=== PATIENT | female | born 1950 | race Caucasian/White ===

== ENCOUNTER 2017-11-05 11:14 | Inpatient (IN) ==
[2017-11-05] MEDS ORDERED: LORazepam 1 MG TABLET PO PRN (13:35)
[2017-11-05] MEDS ORDERED: ZALEPLON 5 MG CAPSULE PO PRN (13:35)
[2017-11-05] MEDS ORDERED: ENOXAPARIN 40 MG/0.4 ML SYRINGE SUBCUT SCH (14:00)
[2017-11-05 14:02] LABS: Basophils # 0.1 10*3/uL (0.0-0.2); Basophils % 1.4 % (0.0-0.8); Eosinophils # 0.2 10*3/uL (0.0-0.87); Hematocrit 43.2 VOL% (35.7-47.0); Hemoglobin 14.8 GM/DL (12.0-16.0); Immature Granulocytes % 0.5 %; Immature Granulocytes Absolute 0.02 #; Lymphocytes # 1.5 10*3/uL (1.4-4.0); Lymphocytes % 36.4 % (21.3-54.2); Mean Corpuscular HGB Conc 34.3 GM/DL (32-36); Mean Corpuscular Hemoglobin 31 PG (27-34); Mean Corpuscular Volume 90.8 FL (87-102); Mean Platelet Volume 10.8 FL (9.6-12.0); Monocytes # 0.2 10*3/uL (0.11-0.8); Neutrophils # 2.2 10*3/uL (1.4-7.4); Neutrophils % 51.7 % (38.7-73.9); Platelet Count 95 T/CUMM (130-400); Red Blood Count 4.76 MC/CUMM (3.8-5.5); Red Cell Distribution Width 13.1 % (9.3-17.3); White Blood Count 4.2 T/CUMM (4-12)
[2017-11-05] MEDS: SODIUM CHLORIDE 0.9% 1,000 ML IV SCH (14:09)
[2017-11-05 14:24] LABS: Albumin 4.1 G/DL (3.4-5.0); Calcium 8.5 MG/DL (8.5-10.1); Osmolality,Calculated 279.4 MOS/KG (273-304); Potassium 3.6 MMOL/L (3.5-5.1); Total Protein 7.5 G/DL (6.4-8.3)
[2017-11-05] MEDS ORDERED: MAGNESIUM SULF RIDER 2 GM in PREMIX 1 EACH IV PRN (15:30)
[2017-11-05] MEDS: KETOROLAC 15 MG/1 ML VIAL IV PRN ×2 (16:20→23:28)
[2017-11-05] MEDS: MEROPENEM 1,000 MG in SYRINGE 1 EACH IV SCH ×2 (16:21→23:27)
[2017-11-05] MEDS: ONDANSETRON 4 MG/2 ML VIAL IV PRN ×2 (16:21→20:29)
[2017-11-05] MEDS ORDERED: MAGNESIUM SULF RIDER 4 GM in PREMIX 1 EACH IV PRN (17:00)
[2017-11-05] MEDS: FLUoxetine 20 MG CAPSULE PO SCH (20:29)
[2017-11-06] MEDS ORDERED: PROMETHAZINE 25 MG/1 ML VIAL IM PRN (00:01)
[2017-11-06 00:05] LABS: Apearance,Urine CLEAR (Clear); Bilirubin,Urine Negative (Negative); Blood, Urine Negative (Negative); Glucose,Urine (UA) Negative (Negative); Ketones,Urine Negative (Negative); Nitrite,Urine Negative (Negative); Protein,Urine Negative; RBC,Urine <1 /HPF (0-4); Squamous Epithelial Cell,Urine Occasional /HPF (0-10); Urine Color Yellow (Yellow); Urine Specific Gravity 1.039 (1.001-1.035); Urine Urobilinogen < 2.0 EU/DL (0.2-1.0); WBC,Urine 3 /HPF (0-6)
[2017-11-06] MEDS: SODIUM CHLORIDE 0.9% 1,000 ML IV SCH ×2 (02:30→15:56)
[2017-11-06 06:23] LABS: Basophils % 0.7 % (0.0-0.8); Eosinophils # 0.2 10*3/uL (0.0-0.87); Eosinophils % 5.3 % (0.00-10.9); Hematocrit 38.9 VOL% (35.7-47.0); Hemoglobin 13.9 GM/DL (12.0-16.0); Immature Granulocytes % 0.2 %; Immature Granulocytes Absolute 0.01 #; Lymphocytes # 2.4 10*3/uL (1.4-4.0); Mean Corpuscular HGB Conc 35.7 GM/DL (32-36); Mean Corpuscular Hemoglobin 32 PG (27-34); Mean Corpuscular Volume 88.2 FL (87-102); Monocytes # 0.3 10*3/uL (0.11-0.8); Monocytes % 6.7 % (1.7-12.7); Neutrophils # 1.4 10*3/uL (1.4-7.4); Neutrophils % 32.1 % (38.7-73.9); Platelet Count 79 T/CUMM (130-400); Red Blood Count 4.41 MC/CUMM (3.8-5.5); White Blood Count 4.3 T/CUMM (4-12)
[2017-11-06 06:50] LABS: Eosinophils 3 % (0-10); Lymphocytes 55 % (20-55); Platelet Estimate Decreased; Polychromasia Slight; Segmented Neutrophils 40 % (50-85); Target Cells Slight; Total Cells Counted 100
[2017-11-06 06:57] LABS: Albumin 3.4 G/DL (3.4-5.0); Bilirubin,Total 1.2 MG/DL (0.2-1.0); Calcium 7.9 MG/DL (8.5-10.1); Osmolality,Calculated 280.1 MOS/KG (273-304); Potassium 3.3 MMOL/L (3.5-5.1); Total Protein 6.2 G/DL (6.4-8.3)
[2017-11-06] MEDS: MEROPENEM 1,000 MG in SYRINGE 1 EACH IV SCH ×3 (08:58→23:32)
[2017-11-06] MEDS: PANTOPRAZOLE 40 MG TABLET PO SCH (09:08)
[2017-11-06] MEDS: TOLTERODINE LA 4 MG CAPSULE PO SCH (09:09)
[2017-11-06] MEDS: FLUoxetine 20 MG CAPSULE PO SCH ×2 (09:09→20:52)
[2017-11-06 13:09] LABS: Hepatitis A Ab IgM Result Negative (Negative); Hepatitis B Core IgM Quant 0.17 Index; Hepatitis B Core IgM Result Negative (Negative); Hepatitis B Surface Ag Quant < 0.10 Index; Hepatitis B Surface Ag Result Negative (Negative); Hepatitis C Virus Ab Quant 0.07 Index; Hepatitis C Virus Ab Result Negative (Negative)
[2017-11-06] MEDS ORDERED: POTASSIUM CHLORIDE 20 MEQ TABLET PO ONE (13:41)
[2017-11-06] MEDS: KETOROLAC 15 MG/1 ML VIAL IV PRN (20:48)
[2017-11-06] MEDS ORDERED: AMITRIPTYLINE 25 MG TABLET PO SCH (21:00)
[2017-11-07 06:59] LABS: Basophils % 0.7 % (0.0-0.8); Eosinophils # 0.2 10*3/uL (0.0-0.87); Eosinophils % 5.6 % (0.00-10.9); Hematocrit 41.5 VOL% (35.7-47.0); Hemoglobin 14.3 GM/DL (12.0-16.0); Immature Granulocytes % 0.2 %; Immature Granulocytes Absolute 0.01 #; Lymphocytes # 2.3 10*3/uL (1.4-4.0); Lymphocytes % 55.1 % (21.3-54.2); Mean Corpuscular HGB Conc 34.5 GM/DL (32-36); Mean Corpuscular Hemoglobin 31 PG (27-34); Mean Corpuscular Volume 89.8 FL (87-102); Mean Platelet Volume 10.9 FL (9.6-12.0); Monocytes # 0.2 10*3/uL (0.11-0.8); Monocytes % 5.8 % (1.7-12.7); Neutrophils # 1.4 10*3/uL (1.4-7.4); Neutrophils % 32.6 % (38.7-73.9); Platelet Count 82 T/CUMM (130-400); Red Blood Count 4.62 MC/CUMM (3.8-5.5); White Blood Count 4.1 T/CUMM (4-12)
[2017-11-07 07:28] LABS: Albumin 3.6 G/DL (3.4-5.0); Calcium 8.4 MG/DL (8.5-10.1); Osmolality,Calculated 278.3 MOS/KG (273-304); Potassium 3.8 MMOL/L (3.5-5.1); Total Protein 6.7 G/DL (6.4-8.3)
[2017-11-07 07:40] LABS: Eosinophils 8 % (0-10); Hypochromasia 1+; Lymphocytes 59 % (20-55); Segmented Neutrophils 32 % (50-85); Total Cells Counted 100
[2017-11-07 07:41] LABS: Atypical Lymphocytes Few; Microcytosis 1+; Platelet Estimate Decreased
[2017-11-07 07:50] VITALS: BP 129/72
[2017-11-07] MEDS: MEROPENEM 1,000 MG in SYRINGE 1 EACH IV SCH (08:55)
[2017-11-07] MEDS: TOLTERODINE LA 4 MG CAPSULE PO SCH (08:59)
[2017-11-07] MEDS: FLUoxetine 20 MG CAPSULE PO SCH (08:59)
[2017-11-07] MEDS: PANTOPRAZOLE 40 MG TABLET PO SCH (09:00)
[2017-11-07] MEDS: KETOROLAC 15 MG/1 ML VIAL IV PRN (10:22)
[2017-11-07] MEDS: SODIUM CHLORIDE 0.9% 1,000 ML IV SCH (10:40)
== END 2017-11-07 11:10 | disposition home or self-care (01) | DRG 392 ==
LOC: N.2E 12:45
PROVIDERS: ADMIT Internal Medicine; ATTEND Internal Medicine

== ENCOUNTER 2022-07-22 12:53 | Observation (INO) ==
[2022-07-22] MEDS ORDERED: ONDANSETRON 4 MG/2 ML VIAL IV ONE (14:41)
[2022-07-22] MEDS ORDERED: HYDROmorphone 1 MG/1 ML SYRINGE IV STA ×2 (14:41→19:47)
[2022-07-22] MEDS ORDERED: LABETALOL 20 MG/4 ML SYRINGE IV STA ×2 (14:41→15:59)
[2022-07-22] MEDS ORDERED: SODIUM CHLORIDE 0.9% 1,000 ML IV STA (14:41)
[2022-07-22] MEDS ORDERED: PANTOPRAZOLE 40 MG VIAL IV STA (14:43)
[2022-07-22 15:29] LABS: Basophils % 0.2 % (0.0-0.8); Hematocrit 37.5 VOL% (35.7-47.0); Hemoglobin 11.9 GM/DL (12.0-16.0); Immature Granulocytes % 0.8 %; Immature Granulocytes Absolute 0.04 #; Lymphocytes # 0.5 10*3/uL (1.4-4.0); Lymphocytes % 10.1 % (21.3-54.2); Mean Corpuscular HGB Conc 31.7 GM/DL (32-36); Mean Corpuscular Volume 80.3 FL (87-102); Monocytes # 0.3 10*3/uL (0.11-0.8); Monocytes % 5.5 % (1.7-12.7); Neutrophils % 83.4 % (38.7-73.9); Platelet Count 138 T/CUMM (130-400); Red Blood Count 4.67 MC/CUMM (3.8-5.5); Red Cell Distribution Width 24.6 % (9.3-17.3); White Blood Count 5.2 T/CUMM (4-12)
[2022-07-22 15:34] LABS: INR 1.2; PT Patient Result 13.4 SECS (10.1-12.1)
[2022-07-22 17:38] LABS: Urine Appearance Clear (Clear); Urine Color Yellow (Yellow)
[2022-07-22 17:39] LABS: Bilirubin,Urine Negative (Negative); Blood, Urine Trace mg/dL (Negative); Glucose,Urine (UA) Negative (Negative); Ketones,Urine Negative (Negative); Nitrite,Urine Negative (Negative); Protein,Urine Negative (Negative); Urine Specific Gravity 1.025 (1.001-1.035); Urine Urobilinogen 0.2 eU/dL (<2.0)
[2022-07-22 17:42] LABS: Bacteria,Urine Moderate /HPF (Few); Mucus,Urine Occasional /LPF (Occasional); RBC,Urine 1 /HPF (0-4); Squamous Epithelial Cell,Urine Occasional /HPF (0-10)
[2022-07-22 17:52] LABS: Albumin 3.6 G/DL (3.4-5.0); Calcium 8.2 MG/DL (8.5-10.1); Osmolality,Calculated 281.1 MOS/KG (273-304); Potassium 3.4 MMOL/L (3.5-5.1); Total Protein 7.4 G/DL (6.4-8.2)
[2022-07-22] MEDS ORDERED: CIPROFLOXACIN INJ 400 MG/200 ML PREMIX IV STA (19:28)
[2022-07-22] MEDS ORDERED: metroNIDAZOLE INJ 500 MG/100 ML PREMIX IV STA (19:28)
[2022-07-22] MEDS ORDERED: ACETAMINOPHEN 325 MG TABLET PO PRN (20:15)
[2022-07-22] MEDS ORDERED: hydrALAZINE 20 MG/1 ML VIAL IV PRN (20:15)
[2022-07-22] MEDS ORDERED: ALBUTEROL/IPRATROPIUM 3 ML NEB RESP TX PRN (20:15)
[2022-07-22] MEDS ORDERED: PROMETHAZINE INJ 25 MG in SODIUM CHLORIDE 0.9% 50 ML IV PRN (20:51)
[2022-07-22] MEDS: PANTOPRAZOLE 40 MG VIAL IV SCH (22:12)
[2022-07-22] MEDS: ONDANSETRON 4 MG/2 ML VIAL IV PRN (22:15)
[2022-07-22] MEDS: LACTATED RINGERS 1,000 ML IV SCH (22:19)
[2022-07-23] MEDS: traZODone 50 MG TABLET PO SCH ×2 (00:18→21:09)
[2022-07-23] MEDS ORDERED: DIAZEPAM 5 MG TABLET PO PRN (00:23)
[2022-07-23] MEDS ORDERED: EPINEPHrine 1 MG/ML VIAL IM PRN (00:25)
[2022-07-23] MEDS ORDERED: SODIUM CHLORIDE 0.9% 1,000 ML IV STA (01:24)
[2022-07-23] MEDS: metroNIDAZOLE INJ 500 MG/100 ML PREMIX IV SCH ×2 (03:30→16:30)
[2022-07-23] MEDS: HYDROmorphone 1 MG/1 ML SYRINGE IV PRN ×3 (03:45→17:54)
[2022-07-23 04:40] LABS: Basophils % 0.2 % (0.0-0.8); Hematocrit 35.1 VOL% (35.7-47.0); Hemoglobin 11.1 GM/DL (12.0-16.0); Immature Granulocytes % 0.2 %; Immature Granulocytes Absolute 0.01 #; Lymphocytes # 2.4 10*3/uL (1.4-4.0); Lymphocytes % 43.4 % (21.3-54.2); Mean Corpuscular HGB Conc 31.6 GM/DL (32-36); Mean Platelet Volume 10.5 FL (9.6-12.0); Monocytes # 0.6 10*3/uL (0.11-0.8); Monocytes % 9.8 % (1.7-12.7); Neutrophils % 46.4 % (38.7-73.9); Platelet Count 122 T/CUMM (130-400); Red Blood Count 4.28 MC/CUMM (3.8-5.5); Red Cell Distribution Width 24.1 % (9.3-17.3); White Blood Count 5.6 T/CUMM (4-12)
[2022-07-23 05:01] LABS: Anisocytosis 1+; Hypochromia Slight; Microcytosis 1+; Ovalocytes Few; Platelet Estimate Adequate
[2022-07-23 05:18] LABS: Calcium 8.1 MG/DL (8.5-10.1); Osmolality,Calculated 284.7 MOS/KG (273-304)
[2022-07-23] MEDS: PANTOPRAZOLE 40 MG VIAL IV SCH ×2 (09:36→21:10)
[2022-07-23] MEDS: OXYBUTYNIN XL 10 MG TABLET PO SCH (09:36)
[2022-07-23] MEDS: CIPROFLOXACIN INJ 400 MG/200 ML PREMIX IV SCH ×2 (09:36→21:10)
[2022-07-23] MEDS: METOCLOPRAMIDE 10 MG TABLET PO SCH ×3 (09:36→21:09)
[2022-07-23] MEDS: ARIPiprazole 5 MG TABLET PO SCH (09:36)
[2022-07-23] MEDS: POTASSIUM CHLORIDE RIDER 10 MEQ/100 ML PREMIX IV SCH ×4 (10:48→16:55)
[2022-07-23] MEDS: LACTATED RINGERS 1,000 ML IV SCH ×3 (10:53→23:51)
[2022-07-23] MEDS: LOSARTAN 25 MG TABLET PO SCH ×2 (11:58→21:09)
[2022-07-23] MEDS: SUCRALFATE 1 GM/10 ML UDCUP PO SCH ×2 (11:58→16:55)
[2022-07-24] MEDS: ONDANSETRON 4 MG/2 ML VIAL IV PRN ×2 (00:03→05:21)
[2022-07-24] MEDS ORDERED: LACTATED RINGERS 1,000 ML IV SCH (08:00)
[2022-07-24] MEDS ORDERED: ONDANSETRON 4 MG/2 ML VIAL ONE (08:20)
[2022-07-24] MEDS ORDERED: propofoL 200 MG/20 ML VIAL IV ONE (08:47)
[2022-07-24] MEDS ORDERED: LIDOCAINE 2% 5 ML VIAL ONE (08:47)
[2022-07-24] MEDS ORDERED: LABETALOL 20 MG/4 ML SYRINGE IV ONE (08:54)
[2022-07-24] MEDS: METOCLOPRAMIDE 10 MG TABLET PO SCH ×2 (11:01→15:11)
[2022-07-24] MEDS: LOSARTAN 25 MG TABLET PO SCH (11:01)
[2022-07-24] MEDS: SUCRALFATE 1 GM/10 ML UDCUP PO SCH ×2 (11:02→12:21)
[2022-07-24] MEDS: ARIPiprazole 5 MG TABLET PO SCH (11:02)
[2022-07-24] MEDS: CIPROFLOXACIN INJ 400 MG/200 ML PREMIX IV SCH (11:02)
[2022-07-24] MEDS: OXYBUTYNIN XL 10 MG TABLET PO SCH (11:02)
[2022-07-24] MEDS: PANTOPRAZOLE 40 MG VIAL IV SCH (11:02)
[2022-07-24] MEDS: LACTATED RINGERS 1,000 ML IV SCH (12:22)
[2022-07-24] MEDS: HYDROmorphone 1 MG/1 ML SYRINGE IV PRN (15:12)
[2022-07-24 15:44] VITALS: BP 167/79
== END 2022-07-24 17:00 | disposition home or self-care (01) ==
LOC: N.ED 12:53 → N.EDINP 12:53 → N.5E 07-23 03:14
PROVIDERS: ADMIT Internal Medicine; ATTEND Internal Medicine